=== PATIENT | female | born 1970 | race Caucasian/White ===

== ENCOUNTER 2017-08-02 07:49 | Observation (INO) | payer BC, OTHER ==
[~2017-08-02] VITALS: Ht 160 cm; Wt 60.8 kg
[2017-08-02] MEDS ORDERED: MoRPHine SULFATE 4 MG/ML 1 ML CARP\\VIAL IV STA ×2 (08:32→10:25)
[2017-08-02] MEDS ORDERED: ONDANSETRON INJ 2 MG/ML 2 ML VIAL IV STA (08:32)
[2017-08-02] MEDS ORDERED: SODIUM CHLORIDE 0.9% 500ML 500 ML IV STA (08:32)
[2017-08-02] MEDS ORDERED: SODIUM CHLORIDE 0.9% 1000ML 1,000 ML IV STA (08:32)
[2017-08-02 08:42] LABS: BASO % 0.3 %; BASO ABS # 0.04 K/uL (0-0.2); EOS % 1.5 %; EOS ABS # 0.19 K/uL (0-0.5); HEMATOCRIT 36.9 % (37-47); HEMOGLOBIN 12.5 g/dL (12.0-16.0); IG# 0.03 K/uL (0.00-0.02); LYMPH % 15.4 %; LYMPH ABS # 1.92 K/uL (1.2-3.4); MEAN CELL VOLUME 84.8 fL (80-100); MEAN CORPUSCULAR HEMOGLOBIN 28.7 pg (25-34); MEAN CORPUSCULAR HGB CONC 33.9 g/dl (32-36); MEAN PLATELET VOLUME 8.9 fL (7.4-10.4); MONO % 7.2 %; NEUT % 75.4 %; NEUT ABS # 9.36 K/uL (1.4-6.5); PLATELET COUNT 359 K/uL (130-400); RED CELL DISTRIBUTION WIDTH CV 14.2 % (11.5-14.5); WHITE BLOOD COUNT 12.44 K/uL (4.8-10.8)
[2017-08-02] MEDS ORDERED: OPTIRAY 320 IV PRN (08:45)
[2017-08-02] MEDS ORDERED: PRLSR20 PO (08:54)
[2017-08-02] MEDS ORDERED: PRAV20TA PO (08:54)
[2017-08-02] MEDS ORDERED: LEVO50TA PO (08:54)
[2017-08-02] MEDS ORDERED: CETI10TA84 PO (08:54)
[2017-08-02] MEDS ORDERED: MONT1TAB3 PO (08:54)
[2017-08-02 09:01] LABS: ALBUMIN 3.6 gm/dl (3.4-5.0); CALCIUM 8.7 mg/dl (8.5-10.1); CREATININE 0.67 mg/dl (0.60-1.20); POTASSIUM 3.6 mmol/L (3.5-5.1)
[2017-08-02 09:04] LABS: TOTAL PROTEIN 7.4 gm/dl (6.4-8.2)
--- NOTE | 2017-08-02 09:23 | DIAGNOSTIC IMAGING REPORT ---
GALLBLADDER-ABD LIMITED CLINICAL HISTORY: Rmid abd pain, cholecystitis nausea. Pain. TECHNIQUE: Ultrasound COMPARISON STUDY: None FINDINGS: Several small polyps within the gallbladder. No shadowing gallstones. Common bile duct 4 mm. Liver is uniform throughout. 1.5 cm benign hemangioma right hepatic lobe. Pancreas and right kidney are unremarkable. IMPRESSION: Several small gallbladder polyps. Normal caliber bile ducts. Small hepatic benign hemangioma. The above report was generated using voice recognition software. It may contain grammatical, syntax or spelling errors. Electronically signed by: Duke Key M.D. 08/02/2017 9:22 AM Dictated Date/Time: 08/02/2017 9:21 AM
--- NOTE | 2017-08-02 11:09 | DIAGNOSTIC IMAGING REPORT ---
ABD/PELVIS IV AND ORAL CONT CT DOSE: 261.63 mGy.cm HISTORY: Flank pain R mid abd pain, vomiting TECHNIQUE: Multiaxial CT images of the abdomen and pelvis were performed following the use of intravenous and oral contrast. A dose lowering technique was utilized adhering to the principles of ALARA. COMPARISON STUDY: None. FINDINGS: Lung bases are clear. Liver spleen and pancreas are unremarkable. Kidneys enhance uniformly. The bowel pattern is nonobstructive. The appendix is moderately distended at 8 mm. There is moderate periappendiceal infiltrative change. There is no evidence for abscess or phlegmon. There is mild reactive thickening of the distal aspect of the terminal ileum. Pelvic bowel pattern is considered nonobstructive. There is a 1.3 cm collapsing right ovarian cyst. There are several scattered colonic diverticuli with no evidence for diverticulitis. IMPRESSION: 1. Acute appendicitis. 2. Mild periappendiceal infiltrative change with no evidence for abscess collection or obstructive change. 3. Mild scattered colonic diverticulosis. 4. 1.3 cm right ovarian cyst. The above report was generated using voice recognition software. It may contain grammatical, syntax or spelling errors. Electronically signed by: Duke Key M.D. 08/02/2017 11:08 AM Dictated Date/Time: 08/02/2017 11:05 AM
--- NOTE | 2017-08-02 11:35 | EMERGENCY ROOM VISIT NOTE ---
History Report prepared by Jenaro: Maria C Rai Under the Supervision of: Dr. Nasreen Del Toro M.D. First contact with patient: 08:21 Chief Complaint: ABDOMINAL PAIN Stated Complaint: SEVERE PAIN IN RIGHT ABDOMEN History of Present Illness The patient is a 47 year old female who presents to the Emergency Room with complaints of constant right sided abdominal pain starting yesterday morning. The patient states that she ate toast yesterday morning and the pain started. She reports that she became nauseous and vomited shortly after. She reports that she tried drinking chicken noodle soup for lunch, but again experienced nausea and vomiting. She notes that she has not vomited today, but has also not eaten anything today. She currently rates her pain as a 7/10 in severity. The patient denies eating any peanut butter on her toast, urinary symptoms, back pain, and the chance of being . The patient notes that her LNMP was at the beginning of this month. Source of History: patient Onset: yesterday morning Position: abdomen (right sided) Symptom Intensity: 7/10 Timing: constant Associated Symptoms: + nausea, + vomiting, No back pain, No urinary symptoms Review of Systems See HPI for pertinent positives & negatives. A total of 10 systems reviewed and were otherwise negative. Past Medical & Surgical Medical Problems: (1) Acute appendicitis (2) Asthma (3) Eczema (4) Tennis elbow syndrome Surgical Problems: (1) Hx of section Family History Cancer Diabetes mellitus Gallbladder disease Heart disease Hypertension Kidney disease Kidney stones Lung disease Social History Smoking Status: Never Smoker Smokeless Tobacco Use: No Alcohol Use: occasionally Marital Status: Housing Status: lives with family Occupation Status: employed Current/Historical Medications Scheduled Cetirizine (Zyrtec), 10 MG PO DAILY Levothyroxine Sodium (Synthroid), 50 MCG PO DAILY Montelukast Sodium (Singulair), 10 MG PO DAILY Omeprazole (Prilosec), 20 MG PO DAILY Pravastatin (Pravachol ), 20 MG PO DAILY Allergies Coded Allergies: Sulfa Antibiotics (Unverified Allergy, Unknown, ., 08/02/17) Physical Exam Vital Signs Date Time Temp Pulse Resp B/P (MAP) Pulse Ox O2 Delivery O2 Flow Rate FiO2 08/02/17 14:50 70 16 101/47 96 Room Air 08/02/17 14:40 72 13 104/54 94 Room Air 08/02/17 14:30 74 16 105/49 95 Room Air 08/02/17 14:20 83 22 107/43 95 Room Air 08/02/17 14:10 100 14 103/54 100 Oxymask 2 08/02/17 14:00 36.8 86 14 107/63 99 Oxymask 2 08/02/17 12:11 74 18 122/44 97 08/02/17 11:58 74 18 122/44 97 Room Air 08/02/17 11:49 Room Air 08/02/17 11:30 77 18 112/58 97 Room Air 08/02/17 09:30 79 18 123/54 98 Room Air 08/02/17 07:52 36.6 87 18 98/53 97 Room Air Physical Exam Vital signs reviewed. General: Well-appearing, in no significant distress. HEENT: No scleral icterus, PERRLA, neck supple. Atraumatic. Cardiovascular: Regular rate and rhythm, no extra sounds. Pulmonary: Clear to auscultation bilaterally, normal work of breathing. Abdomen: Soft, tenderness to palpation to the right upper and mid abdomen, nondistended, positive bowel sounds. Musculoskeletal: Atraumatic, no peripheral edema. Minimal right CVA tenderness. Neurologic: Patient awake alert and oriented x 3 Skin: Warm, dry, no rash Medical Decision & Procedures ER Provider Diagnostic Interpretation: Radiology results as stated below per my review and radiologist interpretation: GALLBLADDER-ABD LIMITED CLINICAL HISTORY: Rmid abd pain, cholecystitis nausea. Pain. TECHNIQUE: Ultrasound COMPARISON STUDY: None FINDINGS: Several small polyps within the gallbladder. No shadowing gallstones. Common bile duct 4 mm. Liver is uniform throughout. 1.5 cm benign hemangioma right hepatic lobe. Pancreas and right kidney are unremarkable. IMPRESSION: Several small gallbladder polyps. Normal caliber bile ducts. Small hepatic benign hemangioma. The above report was generated using voice recognition software. It may contain grammatical, syntax or spelling errors. Electronically signed by: Duke Key M.D. 08/02/2017 9:22 AM Dictated Date/Time: 08/02/2017 9:21 AM ABD/PELVIS IV AND ORAL CONT CT DOSE: 261.63 mGy.cm HISTORY: Flank pain R mid abd pain, vomiting TECHNIQUE: Multiaxial CT images of the abdomen and pelvis were performed following the use of intravenous and oral contrast. A dose lowering technique was utilized adhering to the principles of ALARA. COMPARISON STUDY: None. FINDINGS: Lung bases are clear. Liver spleen and pancreas are unremarkable. Kidneys enhance uniformly. The bowel pattern is nonobstructive. The appendix is moderately distended at 8 mm. There is moderate periappendiceal infiltrative change. There is no evidence for abscess or phlegmon. There is mild reactive thickening of the distal aspect of the terminal ileum. Pelvic bowel pattern is considered nonobstructive. There is a 1.3 cm collapsing right ovarian cyst. There are several scattered colonic diverticuli with no evidence for diverticulitis. IMPRESSION: 1. Acute appendicitis. 2. Mild periappendiceal infiltrative change with no evidence for abscess collection or obstructive change. 3. Mild scattered colonic diverticulosis. 4. 1.3 cm right ovarian cyst. The above report was generated using voice recognition software. It may contain grammatical, syntax or spelling errors. Electronically signed by: Duke Key M.D. 08/02/2017 11:08 AM Dictated Date/Time: 08/02/2017 11:05 AM Laboratory Results 08/02/17 08:31 Red Blood Count 4.35, Mean Corpuscular Volume 84.8, Mean Corpuscular Hemoglobin 28.7, Mean Corpuscular Hemoglobin Concent 33.9, Mean Platelet Volume 8.9, Neutrophils (%) (Auto) 75.4, Lymphocytes (%) (Auto) 15.4, Monocytes (%) (Auto) 7.2, Eosinophils (%) (Auto) 1.5, Basophils (%) (Auto) 0.3, Neutrophils # (Auto) 9.36, Lymphocytes # (Auto) 1.92, Monocytes # (Auto) 0.90, Eosinophils # (Auto) 0.19, Basophils # (Auto) 0.04 08/02/17 08:31 Test 08/02/17 08:31 White Blood Count 12.44 K/uL (4.8-10.8) Red Blood Count 4.35 M/uL (4.2-5.4) Hemoglobin 12.5 g/dL (12.0-16.0) Hematocrit 36.9 % (37-47) Mean Corpuscular Volume 84.8 fL (80-100) Mean Corpuscular Hemoglobin 28.7 pg (25-34) Mean Corpuscular Hemoglobin Concent 33.9 g/dl (32-36) Platelet Count 359 K/uL (130-400) Mean Platelet Volume 8.9 fL (7.4-10.4) Neutrophils (%) (Auto) 75.4 % Lymphocytes (%) (Auto) 15.4 % Monocytes (%) (Auto) 7.2 % Eosinophils (%) (Auto) 1.5 % Basophils (%) (Auto) 0.3 % Neutrophils # (Auto) 9.36 K/uL (1.4-6.5) Lymphocytes # (Auto) 1.92 K/uL (1.2-3.4) Monocytes # (Auto) 0.90 K/uL (0.11-0.59) Eosinophils # (Auto) 0.19 K/uL (0-0.5) Basophils # (Auto) 0.04 K/uL (0-0.2) RDW Standard Deviation 44.0 fL (36.4-46.3) RDW Coefficient of Variation 14.2 % (11.5-14.5) Immature Granulocyte % (Auto) 0.2 % Immature Granulocyte # (Auto) 0.03 K/uL (0.00-0.02) Urine Color DK YELLOW Urine Appearance CLEAR (CLEAR) Urine pH 6.0 (4.5-7.5) Urine Specific [place] 1.022 (1.000-1.030) Urine Protein NEG (NEG) Urine Glucose (UA) NEG (NEG) Urine Ketones TRACE (NEG) Urine Occult Blood 1+ (NEG) Urine Nitrite NEG (NEG) Urine Bilirubin NEG (NEG) Urine Urobilinogen NEG (NEG) Urine Leukocyte Esterase NEG (NEG) Urine WBC (Auto) 1-5 /hpf (0-5) Urine RBC (Auto) 5-10 /hpf (0-4) Urine Hyaline Casts (Auto) 5-10 /lpf (0-5) Urine Epithelial Cells (Auto) >30 /lpf (0-5) Urine Bacteria (Auto) NEG (NEG) Urine Test NEG (NEG) Anion Gap 9.0 mmol/L (3-11) Est Creatinine Clear Calc Drug Dose 84.9 ml/min Estimated GFR () 120.5 Estimated GFR (Non- 103.9 BUN/Creatinine Ratio 9.6 (10-20) Calcium Level 8.7 mg/dl (8.5-10.1) Magnesium Level 2.3 mg/dl (1.8-2.4) Total Bilirubin 0.6 mg/dl (0.2-1) Direct Bilirubin 0.1 mg/dl (0-0.2) Aspartate Amino Transf (AST/SGOT) 10 U/L (15-37) Alanine Aminotransferase (ALT/SGPT) 20 U/L (12-78) Alkaline Phosphatase 49 U/L (45-117) Total Protein 7.4 gm/dl (6.4-8.2) Albumin 3.6 gm/dl (3.4-5.0) Lipase 74 U/L (73-393) Laboratory results per my review. Medications Administered Medications (Trade) Dose Ordered Sig/Gissel Route Start Time Stop Time Status Last Admin Dose Admin Morphine Sulfate (MoRPHine SULFATE INJ) 4 mg NOW STAT IV 08/02/17 08:32 08/02/17 08:35 DC 08/02/17 08:47 4 MG Ondansetron HCl (Zofran Inj) 4 mg NOW STAT IV 08/02/17 08:32 08/02/17 08:35 DC 08/02/17 08:47 4 MG Sodium Chloride 1,000 ml @ 125 mls/hr Q8H STAT IV 08/02/17 08:32 08/02/17 16:31 08/02/17 09:31 125 MLS/HR Sodium Chloride 500 ml @ 999 mls/hr Q31M STAT IV 08/02/17 08:32 08/02/17 09:02 DC 08/02/17 08:47 999 MLS/HR Morphine Sulfate (MoRPHine SULFATE INJ) 4 mg NOW STAT IV 08/02/17 10:25 08/02/17 10:26 DC 08/02/17 10:35 4 MG Bupivacaine HCl (Marcaine 0.5% MPF Inj) 30 ml STK-MED ONCE .ROUTE 08/02/17 12:01 08/02/17 12:02 DC 08/02/17 13:26 8.5 ML Lidocaine HCl (Xylocaine 1% Inj (Local)) 20 ml STK-MED ONCE .ROUTE 08/02/17 12:01 08/02/17 12:02 DC 08/02/17 13:27 8.5 ML Cefoxitin Sodium 2000 mg/Dextrose 60 ml @ 120 mls/hr TODAY@1215 ONCE IV 08/02/17 12:15 08/02/17 12:44 DC 08/02/17 12:18 120 MLS/HR ED Course 0830: Past medical records reviewed. The patient was evaluated in room B10. A complete history and physical examination was performed. 0832: Ordered NSS 500 ml @ 999 mls/hr IV, NSS 1000 ml @ 125 mls/hr IV, Zofran Inj 4 mg IV, Morphine Sulfate 4 mg IV. 1118: I reviewed the patient's case with Dr. Emerson- General Surgery. He will evaluate the patient for further management. 1135: I reevaluated the patient and updated her on her test results. She is doing well. Medical Decision Differential diagnosis: Etiologies such as appendicitis, diverticulitis, PUD, biliary pathology, UTI, pancreatitis, obstruction, mesenteric ischemia, aortic pathology, infections, inflammatory bowel disease, renal colic, as well as others were entertained. This patient was evaluated and appeared to be in no significant distress. IV access was obtained and laboratory work was drawn. The patient was placed on the security monitor. Patient was hydrated with normal saline solution, given IV morphine and Zofran for her pain. The location of the patient's discomfort is somewhat mid abdominal. Ultrasound of the gallbladder was performed and is negative for acute cholecystitis. Please see additional findings above. CT scan of the abdomen and pelvis reveals an acute appendicitis. Patient's case was discussed with Dr. Emerson of general surgery. He will evaluate the patient for definitive management. She was made aware of the plan and agrees. Medication Reconcilliation Current Medication List: was personally reviewed by me Blood Pressure Screening Patient's blood pressure: Low blood pressure Will be further monitored by the surgeon. Consults Time Called: 1115 Consulting Physician: Dr. Emerson- General Surgery Returned Call: [phone] I reviewed the patient's case with Dr. Ki Merritt. He will evaluate the patient for further management. Impression Primary Impression: Appendicitis Scribe Attestation The scribe's documentation has been prepared under my direction and personally reviewed by me in its entirety. I confirm that the note above accurately reflects all work, treatment, procedures, and medical decision making performed by me. Departure Information Dispostion Being Evaluated By Surgeon Referrals Quita Loving DO (PCP) Patient Instructions My [facility]
[2017-08-02 11:49] VITALS: Ht 160 cm; Wt 60.8 kg
[2017-08-02] MEDS ORDERED: BUPIVACAINE 0.5 % 5 MG/1 ML MPF 30ML VIAL ONE (12:01)
[2017-08-02] MEDS ORDERED: LIDOCAINE HCL 1% 20 ML VIAL ONE (12:01)
[2017-08-02] MEDS ORDERED: BACITRACIN OINT 15 GM TUBE ONE (12:02)
[2017-08-02] MEDS ORDERED: FENTANYL CITRATE INJ 50 MCG/1 ML 2 ML VIAL ONE ×3 (12:04→14:47)
[2017-08-02] MEDS ORDERED: MIDAZOLAM HCL 1 MG/ML 2ML VIAL ONE (12:05)
[2017-08-02] MEDS ORDERED: CEFOXITIN SOD 2 GM VIAL IV STA (12:10)
--- NOTE | 2017-08-02 12:10 | Surgery Consultation ---
Consultation Date of Consultation: Aug 02, 2017. Attending Physician: History of Present Illness The patient is a 47 year old female who presents to the Emergency Room with complaints of constant right sided abdominal pain starting yesterday morning. The patient states that she ate toast yesterday morning and the pain started. She reports that she became nauseous and vomited shortly after. She reports that she tried drinking chicken noodle soup for lunch, but again experienced nausea and vomiting. She notes that she has not vomited today, but has also not eaten anything today. She currently rates her pain as a 7/10 in severity. The patient denies eating any peanut butter on her toast, urinary symptoms, back pain, and the chance of being . The patient notes that her LNMP was at the beginning of this month. I saw pt at ER, I reviewed pt's H/P with pt, pt is still have RLQ pain with nausea, no vomiting now, pt denies diarrhea, no fever, last BM today. no bloody stool, Past Medical/Surgical History Medical Problems: (1) Appendicitis Status: Acute Family History Cancer Diabetes mellitus Gallbladder disease Heart disease Hypertension Kidney disease Kidney stones Lung disease Social History Smoking Status: Never Smoker Smokeless Tobacco Use: No Alcohol Use: none Drug Use: none Marital Status: Housing Status: lives with family Occupation Status: employed Allergies Coded Allergies: Sulfa Antibiotics (Unverified Allergy, Unknown, ., 08/02/17) Home Medications Scheduled Cetirizine (Zyrtec), 10 MG PO DAILY Levothyroxine Sodium (Synthroid), 50 MCG PO DAILY Montelukast Sodium (Singulair), 10 MG PO DAILY Omeprazole (Prilosec), 20 MG PO DAILY Pravastatin (Pravachol ), 20 MG PO DAILY Current Inpatient Medications Current Inpatient Medications Medications (Trade) Dose Ordered Sig/Gissel Route Start Time Stop Time Status Last Admin Dose Admin Sodium Chloride 1,000 ml @ 125 mls/hr Q8H STAT IV 08/02/17 08:32 08/02/17 16:31 08/02/17 09:31 125 MLS/HR Ioversol (Optiray 320) 100 ml UD PRN IV 08/02/17 08:45 08/06/17 08:44 Review of Systems Constitutional: No fever, No chills, No sweats, No weight loss, No weakness, No fatigue, No problem reported Eyes: No worsening of vision, No eye pain, No redness, No discharge, No diplopia, No problem reported ENT: No hearing loss, No unusual epistaxis, No nasal symptoms, No sore throat, No tinnitus, No dental problems, No trouble swallowing, No problem reported Respiratory: + problem reported (asthma), No cough, No sputum, No wheezing, No shortness of breath, No dyspnea on exertion, No dyspnea at rest, No hemoptysis Cardiovascular: No chest pain, No orthopnea, No PND, No edema, No claudication , No palpitations, No problem reported Abdomen: + pain, + nausea Musculoskeletal: No joint pain, No muscle pain, No swelling, No calf pain, No problem reported Genitourinary - Female: No dysuria, No urinary frequency, No urinary urgency, No urinary incontinence, No urinary retention, No hematuria, No dysmenorrhea, No menorrhagia, No metrorrhagia, No rash, No vaginal bleeding, No vaginal discharge, No vaginal itching, No vulvodynia, No , No problem reported Neurologic: No memory loss, No paralysis, No weakness, No numbness/tingling, No vertigo, No balance problems, No problem reported Psychiatric: No depression symptoms, No anhedonism, No anxiety, No insomnia, No substance abuse, No problem reported Endocrine: No fatigue, No excessive thirst, No excessive urination, No problem reported Physical Exam Date Time Temp Pulse Resp B/P (MAP) Pulse Ox O2 Delivery O2 Flow Rate FiO2 08/02/17 11:58 74 18 122/44 97 Room Air 08/02/17 11:49 Room Air 08/02/17 11:30 77 18 112/58 97 Room Air 08/02/17 09:30 79 18 123/54 98 Room Air 08/02/17 07:52 36.6 87 18 98/53 97 Room Air General Appearance: WD/WN, + mild distress Head: normocephalic Eyes: normal inspection ENT: normal ENT inspection Neck: supple, no JVD Respiratory/Chest: chest non-tender, lungs clear, normal breath sounds Cardiovascular: regular rate, rhythm, no edema, no murmur Abdomen/GI: normal bowel sounds, + tenderness, + guarding (at RLQ) Extremities/Musculoskelatal: normal inspection, no calf tenderness, normal capillary refill Neurologic/Psych: no motor/sensory deficits, alert, normal mood/affect Skin: normal color, warm/dry, no rash Lymphatic: no adenopathy Laboratory Results Last 24 Hours Test 08/02/17 08:31 White Blood Count 12.44 K/uL Red Blood Count 4.35 M/uL Hemoglobin 12.5 g/dL Hematocrit 36.9 % Mean Corpuscular Volume 84.8 fL Mean Corpuscular Hemoglobin 28.7 pg Mean Corpuscular Hemoglobin Concent 33.9 g/dl Platelet Count 359 K/uL Mean Platelet Volume 8.9 fL Neutrophils (%) (Auto) 75.4 % Lymphocytes (%) (Auto) 15.4 % Monocytes (%) (Auto) 7.2 % Eosinophils (%) (Auto) 1.5 % Basophils (%) (Auto) 0.3 % Neutrophils # (Auto) 9.36 K/uL Lymphocytes # (Auto) 1.92 K/uL Monocytes # (Auto) 0.90 K/uL Eosinophils # (Auto) 0.19 K/uL Basophils # (Auto) 0.04 K/uL RDW Standard Deviation 44.0 fL RDW Coefficient of Variation 14.2 % Immature Granulocyte % (Auto) 0.2 % Immature Granulocyte # (Auto) 0.03 K/uL Urine Color DK YELLOW Urine Appearance CLEAR Urine pH 6.0 Urine Specific [place] 1.022 Urine Protein NEG Urine Glucose (UA) NEG Urine Ketones TRACE Urine Occult Blood 1+ Urine Nitrite NEG Urine Bilirubin NEG Urine Urobilinogen NEG Urine Leukocyte Esterase NEG Urine WBC (Auto) 1-5 /hpf Urine RBC (Auto) 5-10 /hpf Urine Hyaline Casts (Auto) 5-10 /lpf Urine Epithelial Cells (Auto) >30 /lpf Urine Bacteria (Auto) NEG Sodium Level 135 mmol/L Potassium Level 3.6 mmol/L Chloride Level 105 mmol/L Carbon Dioxide Level 22 mmol/L Anion Gap 9.0 mmol/L Blood Urea Nitrogen 6 mg/dl Creatinine 0.67 mg/dl Est Creatinine Clear Calc Drug Dose 84.9 ml/min Estimated GFR () 120.5 Estimated GFR (Non- 103.9 BUN/Creatinine Ratio 9.6 Random Glucose 105 mg/dl Calcium Level 8.7 mg/dl Magnesium Level 2.3 mg/dl Total Bilirubin 0.6 mg/dl Direct Bilirubin 0.1 mg/dl Aspartate Amino Transf (AST/SGOT) 10 U/L Alanine Aminotransferase (ALT/SGPT) 20 U/L Alkaline Phosphatase 49 U/L Total Protein 7.4 gm/dl Albumin 3.6 gm/dl Lipase 74 U/L Assessment & Plan CT scan-FINDINGS: Lung bases are clear. Liver spleen and pancreas are unremarkable. Kidneys enhance uniformly. The bowel pattern is nonobstructive. The appendix is moderately distended at 8 mm. There is moderate periappendiceal infiltrative change. There is no evidence for abscess or phlegmon. There is mild reactive thickening of the distal aspect of the terminal ileum. Pelvic bowel pattern is considered nonobstructive. There is a 1.3 cm collapsing right ovarian cyst. There are several scattered colonic diverticuli with no evidence for diverticulitis. IMPRESSION: 1. Acute appendicitis. 2. Mild periappendiceal infiltrative change with no evidence for abscess collection or obstructive change. 3. Mild scattered colonic diverticulosis. 4. 1.3 cm right ovarian cyst. U/S -FINDINGS: Several small polyps within the gallbladder. No shadowing gallstones. Common bile duct 4 mm. Liver is uniform throughout. 1.5 cm benign hemangioma right hepatic lobe. Pancreas and right kidney are unremarkable. IMPRESSION: Several small gallbladder polyps. Normal caliber bile ducts. Small hepatic benign hemangioma. Assessment: pt is a 47 year old female who presents to Er with one day history RLQ pain with nausea and vomiting, CT scan- acute appendicitis, Plan, I recommend to do laparoscopic appendectomy, possible open, D/W benefits, risks and alternatives of the surgery, the risks - infection, bleeding, abscess , injury bowel, pt and her understood, they agree with the surgery, I answered all questions,
--- NOTE | 2017-08-02 12:10 | History & Physical Bridge Note ---
H&P Re-Evaluation Bridge Note: I have examined the patient, reviewed the History & Physical and in the interval since the performance of the History & Physical I have noted the following changes of clinical significance: No changes noted
[2017-08-02] MEDS ORDERED: CEFOXITIN IV 2,000 MG in DEXTROSE 5% 50ML 50 ML IV ONE (12:15)
[2017-08-02] MEDS ORDERED: CEFOXITIN SOD 1 GM VIAL ONE (12:35)
[2017-08-02] MEDS ORDERED: ACETAMINOPHEN 325 MG TAB PO PRN (13:00)
[2017-08-02] MEDS ORDERED: HYDROmorphone INJ 2 MG/ML SYR/VIAL IV PRN (13:00)
[2017-08-02] MEDS ORDERED: ONDANSETRON INJ 2 MG/ML 2 ML VIAL IV PRN ×2 (13:00→14:00)
[2017-08-02] MEDS ORDERED: LIDOCAINE HCL 2% 2 ML VIAL (20MG/ML) ONE (13:21)
[2017-08-02] MEDS ORDERED: NEOSTIGMINE METHYLSULFATE 5 MG/5 ML SYR ONE (13:21)
[2017-08-02] MEDS ORDERED: ROCURONIUM BROMIDE 10 MG/ML 5 ML VIAL IV ONE (13:21)
[2017-08-02] MEDS ORDERED: PROPOFOL IV EMULSION 10 MG/ML 20 ML VIAL IV ONE (13:21)
[2017-08-02] MEDS ORDERED: GLYCOPYRROLATE INJ 0.2 MG/ML VIAL ONE (13:21)
[2017-08-02] MEDS ORDERED: DEXAMETHASONE SOD INJ 4 MG/ML VIAL ONE (13:21)
[2017-08-02] MEDS ORDERED: ONDANSETRON INJ 2 MG/ML 2 ML VIAL ONE (13:21)
[2017-08-02] MEDS ORDERED: KETOROLAC TROMETHAMINE 30 MG/ML VIAL ONE (13:33)
[2017-08-02] MEDS ORDERED: EpHEDrine SULFATE 50MG/5ML SYR ONE (13:41)
--- NOTE | 2017-08-02 13:47 | [facility] Post Operative Brief Note ---
Immediate Operative Summary Operative Date Aug 02, 2017. Pre-Operative Diagnosis Acute Appendicitis Post-Operative Diagnosis Acute Appendicitis Procedure(s) Performed Laparoscopic Appendectomy Surgeon Dr Emerson [employer] [facility] Surgeon(s) None Estimated Blood Loss 5CC Findings Consistent with Post-Op Diagnosis acute appendicitis Fluids (cc crystalloids) 1000ml Specimens A: Appendix Drains None Anesthesia Type General Complication(s) none Disposition Accompanied Pt To Recover: yes Disposition: Recovery Room / PACU
[2017-08-02] MEDS ORDERED: EpHEDrine SULFATE INJ 50 MG/ML AMP IV PRN (14:00)
[2017-08-02] MEDS ORDERED: FENTANYL CITRATE INJ 50 MCG/1 ML 2 ML VIAL IV PRN (14:00)
[2017-08-02] MEDS ORDERED: ATROPINE SULFATE 0.1 MG/ML 5ML SYR IV PRN (14:00)
[2017-08-02] MEDS ORDERED: IV FLUIDS COMPLETED PRN (14:30)
--- NOTE | 2017-08-02 15:11 | OPERATIVE REPORT ---
DATE OF OPERATION: 08/02/2017 PREOPERATIVE DIAGNOSIS: Acute appendicitis. POSTOPERATIVE DIAGNOSIS: Same. OPERATION: Laparoscopic appendectomy. SURGEON: Dr. Jeremiah Emerson. ANESTHESIA: General. ESTIMATED BLOOD LOSS: About 5 mL. FINDINGS: Acute appendicitis. COMPLICATIONS: None. INDICATIONS FOR THE PROCEDURE: This is a 47-year-old female who presented to the ED with 1 day history of right lower quadrant pain with nausea and vomiting. The patient had a CT scan diagnosis of acute appendicitis. We decided to take the patient to the OR and do laparoscopic appendectomy, possible open. I did talk to the patient and the patient's about the benefit and risk, alternate procedure. I indicated the risks may include but not limited such as bleeding, infection, abscess, and injury to bowel. They understand. The patient signed informed consent and I answered all questions. DETAILS OF PROCEDURE: We brought the patient to the OR, put the patient in the supine position. The patient received SCD on bilateral legs to prevent DVT. Also, the patient received 2 g cefoxitin IV for prophylactic antibiotic. The patient received general anesthesia without difficulty and the Gamez catheter inserted. The patient's abdomen was prepped and draped in routine sterile fashion. After time out, I injected the local anesthesia by using 1% lidocaine mixed with 0.5% Marcaine just above umbilical, then made a small incision just above umbilical, opened fascia and opened peritoneum under direct vision, put a Leonides trocar in, connected to CO2 to create pneumoperitoneum. Flow rate is 6 L per minute. Pressure not more than 14 mmHg. Once we get a nice pneumoperitoneum, we put the camera in, looked around the abdomen, shows a normal finding on the small bowel, large bowel, and liver. Appendix showed the edema, inflammation on the appendix, swollen. However, the patient has some adhesion scar on the old incision and some omental attached to incision. Then I put another two 5 mm trocar on the left lower quadrant where I used the harmonic to take down the adhesion on the incision site and then the acute appendicitis was identified. Then I used a grasper to hold the appendix and used harmonic to take down the appendiceal, rechecked, no active bleeding. Then I used an Endo-DHIRAJ staple, transection on the base of the appendix, rechecked and no active bleeding, no leak. I used the catch bag to take all of the appendix. Then we reinserted Leonides trocar in, connected to CO2 to create pneumoperitoneum; again looked around the abdomen. The staple line intact. No active bleeding, no leak. Then we removed all trocar under direct vision. No active bleeding from trocar sites. Pneumoperitoneum was released. Then I used #1 Vicryl [id number] x2, closed the fascial layer of the umbilical incision and closed subcutaneous layer by using 2-0 Vicryl interruptedly, closed skin by using 4-0 Vicryl continuous running, closed another two 5 mm trocar site skin only by using 4-0 Vicryl. We put the dressing on. The patient tolerated the procedure well. All the instrument, needle and sponge counts were correct x2 at the end of the case and the specimen sent to pathology. The patient transferred to recovery room in stable condition. After the procedure, I did talk to the patient's about the OR finding and procedure we did, he understood. I attest to the content of the Intraoperative Record and any orders documented therein. Any exception s are noted below.
--- NOTE | 2017-08-02 15:14 | Anesthesiology Progress Note ---
Anesthesia Post Op Note Date & Time Aug 02, 2017 at 15:14 Vital Signs Pain Intensity: 4 Vital Signs Past 12 Hours Date Time Temp Pulse Resp B/P (MAP) Pulse Ox O2 Delivery O2 Flow Rate FiO2 08/02/17 15:10 79 16 88/53 98 Room Air 08/02/17 15:00 94 13 103/59 99 Room Air 08/02/17 14:50 70 16 101/47 96 Room Air 08/02/17 14:40 72 13 104/54 94 Room Air 08/02/17 14:30 74 16 105/49 95 Room Air 08/02/17 14:20 83 22 107/43 95 Room Air 08/02/17 14:10 100 14 103/54 100 Oxymask 2 08/02/17 14:00 36.8 86 14 107/63 99 Oxymask 2 08/02/17 12:11 74 18 122/44 97 08/02/17 11:58 74 18 122/44 97 Room Air 08/02/17 11:49 Room Air 08/02/17 11:30 77 18 112/58 97 Room Air 08/02/17 09:30 79 18 123/54 98 Room Air 08/02/17 07:52 36.6 87 18 98/53 97 Room Air Notes Mental Status: alert / awake / arousable, participated in evaluation Pt Amnestic to Procedure: Yes Nausea / Vomiting: adequately controlled Pain: improving with treatment Airway Patency, RR, SpO2: stable & adequate BP & HR: stable & adequate Hydration State: stable & adequate Anesthetic Complications: no major complications apparent
[2017-08-02 15:45] VITALS: BP 95/60; PULSE 89; TEMP 36.8; O2SAT 96
[2017-08-02 16:32] VITALS: BP 82/50; PULSE 85; TEMP 36.6; O2SAT 95
[2017-08-02 16:46] VITALS: BP 102/68; PULSE 83; PULSE 96; TEMP 36.4; O2SAT 96
[2017-08-02] MEDS: D5W AND 1/2NSS + 20MEQ KCL 1,000 ML IV SCH (17:10)
[2017-08-02 17:45] VITALS: BP 104/72; PULSE 88; TEMP 36.4; O2SAT 96
[2017-08-02] MEDS: OXYCODONE/ACETAMINOPHEN 5-325 TAB PO PRN ×2 (18:21→23:22)
[2017-08-02] MEDS ORDERED: DEXTROSE 5% IV ONE (21:00)
[2017-08-02] MEDS ORDERED: CEFTRIAXONE SOD IV ONE (21:00)
[2017-08-02 23:08] VITALS: BP 125/73; PULSE 87; TEMP 37; O2SAT 98
[2017-08-02 23:40] VITALS: O2SAT 98
[2017-08-03 03:22] VITALS: BP 107/68; PULSE 69; TEMP 36.6; O2SAT 97
[2017-08-03] MEDS: OXYCODONE/ACETAMINOPHEN 5-325 TAB PO PRN ×4 (03:40→15:56)
[2017-08-03] MEDS: D5W AND 1/2NSS + 20MEQ KCL 1,000 ML IV SCH (06:04)
[2017-08-03 06:11] LABS: BASO % 0.2 %; BASO ABS # 0.02 K/uL (0-0.2); EOS % 1.5 %; EOS ABS # 0.17 K/uL (0-0.5); HEMOGLOBIN 10.6 g/dL (12.0-16.0); IG# 0.03 K/uL (0.00-0.02); LYMPH % 18.1 %; LYMPH ABS # 2.01 K/uL (1.2-3.4); MEAN CELL VOLUME 84.9 fL (80-100); MEAN CORPUSCULAR HGB CONC 34.2 g/dl (32-36); MEAN PLATELET VOLUME 9.1 fL (7.4-10.4); MONO % 8.3 %; MONO ABS # 0.92 K/uL (0.11-0.59); NEUT % 71.6 %; NEUT ABS # 7.97 K/uL (1.4-6.5); PLATELET COUNT 345 K/uL (130-400); RED CELL DISTRIBUTION WIDTH CV 14.5 % (11.5-14.5); RED CELL DISTRIBUTION WIDTH SD 45.1 fL (36.4-46.3); WHITE BLOOD COUNT 11.12 K/uL (4.8-10.8)
[2017-08-03 06:18] LABS: PTT PATIENT 25.4 SECONDS (21.0-31.0)
--- NOTE | 2017-08-03 08:30 | Discharge Instructions ---
Discharge Instructions Date of Service Aug 03, 2017. Admission Reason for Admission: Acute Appendicitis Discharge Discharge Diagnosis / Problem: same Discharge Goals Goal(s): Decrease discomfort, Improve function Activity Recommendations Activity Limitations: per Instructions/Follow-up section No heavy lifting over 20 pounds for 3-4 weeks No strenuous activity until cleared by surgeon No submerging incisions underwater for 2 weeks (no bathing, swimming, or hot tubs) No driving while taking narcotic pain medication or until you are pain free . Instructions / Follow-Up Instructions / Follow-Up You may shower in 3 days, sponge bath and was hair in meantime. Try to keep dressings clean and dry. After 3 days, remove outer dressings and shower. Leave steri strips on incisions for 10 days and then remove. They may fall off on their own that is okay. Walking and light activity is encouraged to prevent blood clots from forming You will be given narcotic pain medication as needed for moderate to severe pain. This medication may make you drowsy and can cause constipation. To combat constipation, drink plenty of water daily, daily walking and light activity, you may take OTC stool softener such as Colace, prune juice, or gentle laxative Follow-up in [facility] Surgical office in 2 weeks, please call office at [phone] to make an appointment Current Hospital Diet Patient's current hospital diet: Regular Diet Discharge Diet Recommended Diet: Regular Diet Procedures Procedures Performed: Laparoscopic Appendectomy Pending Studies Studies pending at discharge: yes List of pending studies: Appendix pathology, will be reviewed at follow up visit Medical Emergencies . Who to Call and When: Medical Emergencies: If at any time you feel your situation is an emergency, please call 911 immediately. . Non-Emergent Contact Non-Emergency issues call your: Primary Care Provider, Surgeon Call Non-Emergent contact if: you have a fever, temperature is above 101, your pain is not controlled, your pain is worsening, your pain is unusual for you, wound has increased drainage, wound has increased redness, wound has increased pain . "Provider Documentation" section prepared by Fariha John. . [place] Drug Monitoring Program Search Results: patient reviewed within database, no issues identified
[2017-08-03] MEDS ORDERED: OXYC-57 PO ×2 (08:31→16:46)
[2017-08-03 08:33] VITALS: BP 111/68; PULSE 67; TEMP 36.6; O2SAT 99
[2017-08-03] MEDS ORDERED: ENOXAPARIN 40 MG/0.4 ML SYR SQ SCH (09:00)
[2017-08-03 14:54] VITALS: BP 106/61; PULSE 73; TEMP 36.6; O2SAT 97
[2017-08-03 17:31] VITALS: BP 106/61; PULSE 73; TEMP 36.6; O2SAT 97
--- NOTE | 2017-08-03 18:00 | Surgery Progress Note ---
Surgery Progress Note Date of Service Aug 03, 2017. Subjective Post OP Day: 1 + feeling well pt is doing fine, no nausea, no vomiting, les abdominal pain, Objective Vital Signs: Date Time Temp Pulse Resp B/P (MAP) Pulse Ox O2 Delivery O2 Flow Rate FiO2 08/03/17 17:31 36.6 73 16 97 Room Air 08/03/17 14:54 36.6 73 16 106/61 (76) 97 Room Air 08/03/17 08:33 36.6 67 19 111/68 (82) 99 Room Air 08/03/17 07:05 Room Air 08/03/17 03:22 36.6 69 16 107/68 (81) 97 Room Air 08/02/17 23:40 98 Room Air 2.0 08/02/17 23:08 37.0 87 16 125/73 (90) 98 Room Air 08/02/17 20:30 Room Air General Appearance: WD/WN, no apparent distress Head: normocephalic Neck: supple, no JVD Respiratory/Chest: chest non-tender, lungs clear Cardiovascular: regular rate, rhythm, no edema, no gallop, no JVD, no murmur Abdomen: normal bowel sounds, non tender, non distended, soft Incision(s): clean, dry, intact Extremities: normal range of motion, non-tender, normal inspection Laboratory Results: Results Past 24 Hours Test 08/03/17 05:39 Range/Units White Blood Count 11.12 4.8-10.8 K/uL Red Blood Count 3.65 4.2-5.4 M/uL Hemoglobin 10.6 12.0-16.0 g/dL Hematocrit 31.0 37-47 % Mean Corpuscular Volume 84.9 80-100 fL Mean Corpuscular Hemoglobin 29.0 25-34 pg Mean Corpuscular Hemoglobin Concent 34.2 32-36 g/dl Platelet Count 345 130-400 K/uL Mean Platelet Volume 9.1 7.4-10.4 fL Neutrophils (%) (Auto) 71.6 % Lymphocytes (%) (Auto) 18.1 % Monocytes (%) (Auto) 8.3 % Eosinophils (%) (Auto) 1.5 % Basophils (%) (Auto) 0.2 % Neutrophils # (Auto) 7.97 1.4-6.5 K/uL Lymphocytes # (Auto) 2.01 1.2-3.4 K/uL Monocytes # (Auto) 0.92 0.11-0.59 K/uL Eosinophils # (Auto) 0.17 0-0.5 K/uL Basophils # (Auto) 0.02 0-0.2 K/uL RDW Standard Deviation 45.1 36.4-46.3 fL RDW Coefficient of Variation 14.5 11.5-14.5 % Immature Granulocyte % (Auto) 0.3 % Immature Granulocyte # (Auto) 0.03 0.00-0.02 K/uL Prothrombin Time 10.7 9.0-12.0 SECONDS Prothromb Time International Ratio 1.0 0.9-1.1 Activated Partial Thromboplast Time 25.4 21.0-31.0 SECONDS Partial Thromboplastin Ratio 1.0 Assessment & Plan pt wants to go home today, I gave pt the post op care instruction, F/U 1 week,
--- NOTE | 2017-08-06 20:18 | DISCHARGE SUMMARY ---
ADMITTING DIAGNOSIS: Acute appendicitis. DISCHARGE DIAGNOSIS: Acute appendicitis. OPERATION: Laparoscopic appendectomy. SURGEON: Dr. Jeremiah Emerson. DETAILS OF DISCHARGE SUMMARY: This is a 47-year-old female who presented to the ED with right lower quadrant pain. Patient had a CT scan diagnosis of acute appendicitis. We took the patient to the OR. We did a laparoscopy appendectomy. Patient tolerated the procedure well. After procedure, patient transferred to recovery room and later on transferred to the surgical floor. Patient doing fine. Patient had good control of incision pain. No nausea, no vomiting. Walking on the hallway. PHYSICAL EXAMINATION: VITAL SIGNS: Temperature is 36.6, heart rate 73, respiratory rate 16, blood pressure is 106/61, O2 saturation 97% on room air. GENERAL: Patient is alert, awake, oriented x3. HEENT: With normal limitation. NEUROLOGIC: Intact. NECK: No JVD. CHEST: Bilateral lung sounds clear. HEART: Normal S1, S2. No murmur. ABDOMEN: Soft, nondistended, slight tenderness along the umbilical incision area. Bowel sounds positive. EXTREMITIES: No edema. PLAN: Patient wanted to go home. I did give patient the postop care instruction and we will follow up patient in 1 week in my office.
== END 2017-08-03 18:00 | disposition home or self-care (01) ==
LOC: C.EDB 07:51 → C.MSN 12:54 → ENRESERV 14:47
PROVIDERS: ADMIT Surgery; ATTEND Surgery
DX: K35.80 Unspecified acute appendicitis (principal); K21.9 Gastro-esophageal reflux disease without esophagitis; Z88.2 Allergy status to sulfonamides; Z83.3 Family history of diabetes mellitus; Z82.49 Family history of ischemic heart disease and other diseases of the circulatory system; Z84.1 Family history of disorders of kidney and ureter

== ENCOUNTER → 2017-11-03 | Outpatient (CLI) | payer OTHER ==
[~2017-11-03] MED LIST: CETI10TA84 PO; LEVO50TA PO; MONT1TAB3 PO; PRAV20TA PO; PRLSR20 PO
== END | disposition home or self-care (01) ==
LOC: C.RDSM 13:22
PROVIDERS: ATTEND Orthopaedic Surgery Sports Medicine
DX: M77.11 Lateral epicondylitis, right elbow (principal); M25.562 Pain in left knee